=== PATIENT | female | born 1965 | race Caucasian/White ===

== ENCOUNTER 2018-01-06 14:54 | Outpatient (CLI) | payer OTHER ==
--- NOTE | 2018-01-06 20:25 | RAD ---
LEFT HAND THREE VIEWS: 01/06/18 No fracture was seen. The joints were unremarkable in appearance with no joint space narrowing, osteo phytes or abnormalities of the articular surfaces. No bony erosions were detected. The carpal bones w ere unremarkable. IMPRESSION: No significant findings. POS: HOME
== END 2018-01-06 14:55 | disposition home or self-care (01) ==
LOC: BURRAD 14:54
PROVIDERS: ATTEND Family Medicine
DX: M25.541 Pain in joints of right hand (principal); M25.542 Pain in joints of left hand; M65.312 Trigger thumb, left thumb

== ENCOUNTER 2019-04-20 13:20 | Emergency (ER) | payer BC, OTHER ==
[~2019-04-20 13:20] MED LIST: Iopamidol 370 76% 100 ML VIAL ONE
[2019-04-20] MEDS ORDERED: Fentanyl 100 MCG/2 ML VIAL ONE ×2 (13:59→15:25)
[2019-04-20 14:03] LABS: #Basophils 0.1 thou/uL (0.0-0.2); #Eosinphils 0.1 thou/uL (0.0-0.7); #Lymphocytes 3.1 thou/uL (1.20-3.40); #Monocytes 0.8 thou/uL (0.11-0.59); #Neutrophils 9.3 thou/uL (1.40-6.50); %Basophils 0.7 % (0.0-1.0); %Eosinophils 0.6 % (0.0-10.0); %Lymphocytes 23.3 % (21.0-51.0); %Monocytes 5.9 % (0.0-10.0); %Neutrophils 69.6 % (42.0-75.0); Hemoglobin 14.7 g/dL (12.0-16.0); Mean Corpuscular Hemoglobin 29.5 pg (27.0-31.0); Mean Corpuscular Volume 92.3 fL (78.0-98.0); Mean Platelet Volume 8.6 fL (7.4-10.4); Platelet Count 256 thou/uL (130-400); RBC Distribution Width 12.1 % (11.5-14.5); Red Blood Cell (RBC) Count 4.99 mill/uL (4.20-5.40); White Blood Cell (WBC) Count 13.3 thou/uL (4.8-10.8)
[2019-04-20 14:19] LABS: ALT (SGPT) 34 U/L (8-55); AST (SGOT) 18 U/L (5-34); Albumin 4.8 g/dL (3.5-5.0); Alkaline Phosphatase 92 U/L (40-110); Anion Gap 16 mmol/L (10-20); BUN (Urea Nitrogen) 8 mg/dL (9.8-20.1); Bilirubin, Total 0.7 mg/dL (0.2-1.2); Calc. Creatinine Clearance 0 mL/min (70-130); Calcium 10.2 mg/dL (7.8-10.44); Carbon Dioxide 25 mmol/L (22-29); Chloride 103 mmol/L (98-107); Estimated GFR-MDRD 70; Globulin 3.2 g/dL (2.4-3.5); Glucose 88 mg/dL (70-105); Lipase 10 U/L (8-78); Potassium 3.9 mmol/L (3.5-5.1); Sodium 140 mmol/L (136-145)
[2019-04-20 14:39] LABS: Bilirubin Negative (Negative); Blood, Urine Negative (Negative); Clarity Clear (Clear); Glucose, Urine (Dipstick) Negative (Negative); Leukocyte Negative (Negative); Nitrite Negative (Negative); Protein, Urine (Dipstick) Negative (Neg-Trace); Urobilinogen 0.2 mg/dL (Less than 2)
[2019-04-20] MEDS ORDERED: Ciprofloxacin 500 MG TAB ONE (14:40)
[2019-04-20] MEDS ORDERED: metroNIDAZOLE 250 MG TAB ONE (14:40)
--- NOTE | 2019-04-20 18:18 | CT ---
CT ABDOMEN AND PELVIS WITH CONTRAST: 04/20/[address] of the abdomen and pelvis was done for evaluation of lower abdominal pain. Axial slices wer e acquired after giving IV contrast. Oral contrast was withheld by request. The major finding on this study is intense inflammatory change around the lower sigmoid colon consist ent with diverticulitis. There are certainly abundant diverticula in the region. The lumen seems swol samuel at this level, but there is no zachariah obstruction. If the patient has not had a colonoscopy in rec ent times to ensure there is no further pathology internally, it might be prudent to do so after she is well away from her acute phase. A very tiny amount of fluid is seen around the colon here but ther e is no free air visible. The lung bases are clear. The liver, spleen, pancreas, adrenal glands, kidneys and abdominal aorta sh owed no acute findings. There has been a prior cholecystectomy. Mesenteric vessels all fill well. Other than the diverticulitis, the remainder of the bowel showed no wall thickening or inflammatory c hange around it. A few loops of mid to distal small bowel are fluid filled and slightly dilated, but this is probably in response to the diverticular disease below. There is no sign of free air. CT of the pelvis was mainly remarkable for the inflammatory changes listed above. There were no addit ional findings here of concern. Incidentally noted was a diffuse bulge of the L4-L5 disc. IMPRESSION: Lower sigmoid diverticulitis with abundant inflammatory change around it, but minimal free fluid and no abscess or free air. See discussion above regarding swelling of the lumen. Findings discussed with Dr. Ceballos at 1424 on 04/20/19. POS: HOME
== END 2019-04-20 16:06 | disposition home or self-care (01) ==
LOC: BURERS 13:20
DX: K57.32 Diverticulitis of large intestine without perforation or abscess without bleeding (principal); F17.210 Nicotine dependence, cigarettes, uncomplicated
CPT/HCPCS: 36415; 74177; 80053; 81003; 83605; 83690; 85025; 87077; 87086; 87186; 96361; 96374; 96376; J3010; Q9967

== ENCOUNTER 2021-05-13 12:04 | Emergency (ER) | payer BC, OTHER ==
[2021-05-13] MEDS ORDERED: Dexamethasone 10 MG/ML VIAL ONE (13:22)
[2021-05-13] MEDS ORDERED: Ketorolac Tromethamine 30 MG/ML VIAL ONE (13:22)
== END 2021-05-13 13:55 | disposition home or self-care (01) ==
LOC: BURERS 12:04
DX: M54.50 Low back pain, unspecified (principal)
CPT/HCPCS: 96372; 99283; J1100; J1885